=== PATIENT | female | born 1965 | race Caucasian/White ===

== ENCOUNTER 2018-10-06 08:16 | Emergency (ER) | payer MEDICAID ==
[~2018-10-06] VITALS: Ht 165.1 cm; Wt 72.6 kg
[2018-10-06 08:23] VITALS: Ht 165.1 cm; Wt 72.6 kg
[2018-10-06 11:30] VITALS: BP 145/99
== END 2018-10-06 11:30 | disposition home or self-care (01) ==
LOC: ED 08:16
DX: S93.402A Sprain of unspecified ligament of left ankle, initial encounter (principal); S50.812A Abrasion of left forearm, initial encounter; S90.512A Abrasion, left ankle, initial encounter; S80.212A Abrasion, left knee, initial encounter; I10 Essential (primary) hypertension; V87.8XXA Person injured in other specified noncollision transport accidents involving motor vehicle (traffic), initial encounter; Y93.I9 Activity, other involving external motion; Y92.488 Other paved roadways as the place of occurrence of the external cause; Y99.8 Other external cause status
CPT/HCPCS: Q0092